=== PATIENT | female | born 1940 | race Caucasian/White ===

== ENCOUNTER → 2018-04-30 | Outpatient (CLI) | payer MEDICARE, OTHER ==
[2018-04-30 13:02] LABS: ANION GAP 18 (8-16); BLOOD UREA NITROGEN 12 mg/dl (7-20); CALCIUM 9.9 mg/dl (8.4-10.2); CARBON DIOXIDE 29 mmol/L (21-31); CHLORIDE 97 mmol/L (97-110); CREATININE 0.87 mg/dl (0.44-1.00); GLUCOSE 140 mg/dl (70-220); POTASSIUM 4.1 mmol/L (3.5-5.1); SODIUM 140 mmol/L (135-144)
[2018-04-30] MEDS: METOPROLOL 100 MG TAB ×2 (13:35→15:39)
[2018-04-30] MEDS: IOHEXOL 100 ML ×2 (15:26→18:18)
[2018-04-30] MEDS: SOD CHLORIDE 0.9% 100 ML ×2 (15:26→18:18)
[2018-04-30] MEDS: METOPROLOL 5 MG INJ ×2 (15:27→17:50)
[2018-04-30] MEDS: NITROGLYCERIN AEROSOL (4.9 GM) (18:35)
[2018-04-30] MEDS: METOPROLOL 5 MG INJ IV ×3 (19:55→19:56)
[2018-04-30] MEDS: METOPROLOL 100 MG TAB PO (19:55)
[2018-04-30] MEDS: METOPROLOL 50 MG TAB PO (19:55)
== END | disposition home or self-care (01) ==
LOC: LAB 12:12
DX: Z01.818 Encounter for other preprocedural examination (principal); R06.02 Shortness of breath
CPT/HCPCS: 75574; 80048

== ENCOUNTER → 2018-09-25 | Day surgery (SDC) | payer MEDICARE, OTHER ==
[~2018-09-25] MED LIST: ACETAMINOPHEN 325 MG TAB PO; AL HYDROX/MG HYDROX/SIMETH 30 ML CUP PO; DIAZEPAM 5 MG TAB; DIAZEPAM 5 MG TAB PO; DIPHENHYDRAMINE 50 MG CAP PO; FAMOTIDINE 20 MG TAB PO; FENTAnyl 50 MCG/ML VIAL; HEPARIN 1000 UNITS/ML 10 ML INJ; HOLD all METFORMIN and METFORMIN CONTAINING medications for 48 hours post procedure. Chec XX; IODIXANOL LOCM 100 ML BTL; LIDOCAINE 1% (MDV) 20 ML INJ; MIDAZOLAM 1 MG/ML 2 ML INJ; NITROGLYCERIN (IC) 100 MCG/ML INJ; ONDANSETRON 4 MG INJ IV; SOD CHLORIDE 0.45% 1,000 ML IV; SOD CHLORIDE 0.9% 1,000 ML IV; VERAPAMIL 5 MG INJ
[2018-09-25 08:21] LABS: ADD MAN DIFF? NO
[2018-09-25 08:28] LABS: WHITE BLOOD COUNT 7.1 10^3/ul (4.8-10.8)
[2018-09-25 08:28] LABS: BASOPHILS % 0.3 % (0.0-2.0); EOSINOPHILS # 0.2 10^3/ul (0.0-0.5); EOSINOPHILS % 2.8 % (0.0-7.0); HEMATOCRIT 37.6 % (37.0-47.0); HEMOGLOBIN 12.8 g/dl (12.0-16.0); LYMPHOCYTES # 1.3 10^3/ul (0.8-2.9); LYMPHOCYTES % 17.7 % (15.0-51.0); MEAN CORPUSCULAR HEMOGLOBIN 33.3 pg (29.0-33.0); MEAN CORPUSCULAR VOLUME 97.9 fl (82.0-101.0); MONOCYTE # 0.5 10^3/ul (0.3-0.9); MONOCYTES % 7.4 % (0.0-11.0); NEUTROPHIL # 5.1 10^3/ul (1.6-7.5); NEUTROPHILS % 71.4 % (39.0-77.0); PLATELET COUNT 261 10^3/UL (140-415); RED BLOOD COUNT 3.84 10^6/ul (4.20-5.40); RED CELL DISTRIBUTION WIDTH 12.1 % (11.5-14.5)
[2018-09-25 08:44] LABS: CHOL/HDL RATIO 3.1 RATIO; HDL CHOLESTEROL 61 mg/dl (33-92); LDL CHOLESTEROL,CALCULATED 103 mg/dl; TRIGLYCERIDES 133 mg/dl (0-149)
[2018-09-25 08:44] LABS: CHOLESTEROL 191 mg/dl (100-200)
[2018-09-25 08:45] LABS: ALANINE AMINOTRANSFERASE 10 IU/L (13-69); ALBUMIN/GLOBULIN RATIO 1.37; ALKALINE PHOSPHATASE 103 IU/L (42-121); ANION GAP 8 (5-13); ASPARTATE AMINO TRANSFERASE 19 IU/L (15-46); BILIRUBIN,INDIRECT 0.4 mg/dl (0-1.1); BILIRUBIN,TOTAL 0.4 mg/dl (0.2-1.3); BLOOD UREA NITROGEN 9 mg/dl (7-20); CALCIUM 9.4 mg/dl (8.4-10.2); CARBON DIOXIDE 34 mmol/L (21-31); CHLORIDE 97 mmol/L (97-110); CREATININE 0.97 mg/dl (0.44-1.00); GLUCOSE 125 mg/dl (70-220); POTASSIUM 3.8 mmol/L (3.5-5.1); SODIUM 139 mmol/L (135-144); TOTAL PROTEIN 6.9 g/dl (6.1-8.1)
[2018-09-25 08:48] LABS: INR 0.99; PROTIME 13.2 Sec (11.9-14.9)
[2018-09-25 08:49] LABS: PARTIAL THROMBOPLASTIN TIME 29.2 Sec (23.0-35.0)
== END | disposition home or self-care (01) ==
LOC: SDS 07:09
DX: I25.10 Atherosclerotic heart disease of native coronary artery without angina pectoris (principal); I10 Essential (primary) hypertension; E78.5 Hyperlipidemia, unspecified
CPT/HCPCS: 71045; 80053; 80061; 85025; 85610; 85730; 93005; 93458